=== PATIENT | male | born 1960 | race Caucasian/White ===

== ENCOUNTER 2018-11-23 14:10 | Emergency (ER) | payer OTHER ==
--- NOTE | 2018-11-23 15:33 | ED Physician Documentation ---
PD HPI HEENT - Stated complaint Stated Complaint: L SIDE EAR MUFFLED-OFF BALANCE - Chief complaint Chief Complaint: Heent - History obtained from History obtained from: Patient - History of Present Illness Timing - onset: How many days ago (has had muffled hearing left ear for few days. Trying to cleanse with water and clear with qtip. Seems to worsen.) Timing - duration: Days Timing - details: Gradual onset, Still present Location: Left ear Associated symptoms: No: Fever, Congestion Similar symptoms before: Diagnosis (cerumen impaction in the past.) Review of Systems Constitutional: denies: Fever, Chills Ears: reports: Loss of hearing. denies: Ear pain, Drainage/discharge, Tinnitus/ringing Throat: denies: Sore throat Respiratory: denies: Cough PD PAST MEDICAL HISTORY - Past Medical History Past Medical History: Yes Other Past Medical History: bladder ca - Past Surgical History Past Surgical History: No - Present Medications Home Medications: Ambulatory Orders Medication Instructions Recorded Confirmed Neomycin/Polymyx/Hc Otic Drops 4 drops OT TID #1 bottle 11/23/18 [Cortisporin Ear Susp] - Social History Does the pt smoke?: No Smoking Status: Never smoker Does the pt drink ETOH?: No Does the pt have substance abuse?: No - Immunizations Immunizations are current?: No - POLST Patient has POLST: No PD ED PE NORMAL - Vitals Vital signs reviewed: Yes - General General: Alert and oriented X 3, No acute distress, Well developed/nourished - HEENT HEENT: Pharynx benign. No: Ears normal (right is good. Left with cerumen impaction and can't see the drum. lateral canal appears okay. ) - Neck Neck: Supple, no meningeal sign, No adenopathy Results - Vitals Vitals: Vital Signs - 24 hr 11/23/18 11/23/18 14:42 16:47 Temperature 36.9 C 36.5 C Heart Rate 73 69 Respiratory 18 16 Rate Blood Pressure 118/73 115/89 H O2 Saturation 99 98 Oxygen O2 Source Room air PD MEDICAL DECISION MAKING - ED course Complexity details: considered differential (left cerumen impaction and after removal there is redness and inflammation of medial ear canal. TM appears okay. ), d/w patient Departure - Departure Disposition: 01 Home, Self Care Clinical Impression: Otitis externa Qualifiers: Otitis externa type: other infective Chronicity: acute Laterality: left Qualified Code(s): H60.392 - Other infective otitis externa, left ear Impacted cerumen Qualifiers: Laterality: left Qualified Code(s): H61.22 - Impacted cerumen, left ear Condition: Stable Record reviewed to determine appropriate education?: Yes Instructions: ED Otitis Externa Follow-Up: Jairo Urbano MD [Primary Care Provider] - Prescriptions: Neomycin/Polymyx/Hc Otic Drops [Cortisporin Ear Susp] 4 drops OT TID #1 bottle Comments: The eardrum appears normal. There is some redness and inflammation of the ear canal behind where the ear wax was. Use antibiotic eardrops 3-4 times a day for the next several days for that. Discharge Date/Time: 11/23/18 16:46
[2018-11-23 16:49] VITALS: BP 115/89
== END 2018-11-23 16:46 | disposition home or self-care (01) ==
LOC: ED 14:10
DX: H60.392 Other infective otitis externa, left ear (principal); H61.22 Impacted cerumen, left ear; Z85.51 Personal history of malignant neoplasm of bladder
CPT/HCPCS: 99283

== ENCOUNTER 2019-03-21 15:59 | Outpatient (CLI) | payer OTHER ==
--- NOTE | 2019-03-21 17:05 | XRAY Report ---
Reason: LOW BACK PAIN,CHRONIC HIP PAIN BILAT Procedure Date: 03/21/2019 Accession Number: [id number] / [id number] Procedure: XR - Lumbar Spine 2 View CPT Code: FULL RESULT: EXAM: LUMBOSACRAL SPINE RADIOGRAPHY EXAM DATE: 03/21/2019 04:03 PM. CLINICAL HISTORY: LOW BACK Pain, chronic HIP PAIN BILAT. COMPARISONS: None. TECHNIQUE: 3 views. FINDINGS: Alignment: Normal. No spondylolisthesis or scoliosis. Bones: Five [id number] lumbar vertebral bodies are present. No fractures or bone lesions. Disks: Multilevel disk height narrowing, which is moderately severe at L3-L4 and L5-S1. No significant subluxation. Multilevel anterior spondylosis at most levels. Facets: Mild bilateral L4-L5 facet arthropathy. Sacroiliac Joints: Unremarkable. Soft Tissues: Normal. The visualized bowel gas pattern is normal. IMPRESSION: 1. No acute abnormality. Negative for fracture. 2. Multilevel degenerative disk disease most severe at L3-L4 and L5-S1 as described above. No significant subluxation. 3. Lower lumbar facet arthropathy as described above. RADIA
--- NOTE | 2019-03-21 17:09 | XRAY Report ---
Reason: LOW BACK PAIN,CHRONIC HIP PAIN BILAT Procedure Date: 03/21/2019 Accession Number: [id number] / [id number] Procedure: XR - Hips 2V BILAT CPT Code: FULL RESULT: EXAM: BILATERAL HIP RADIOGRAPHY EXAM DATE: 03/21/2019 04:04 PM. CLINICAL HISTORY: LOW BACK PAIN, CHRONIC HIP PAIN BILATERAL. COMPARISON: None. TECHNIQUE: 2 views each. FINDINGS: Bones: No acute findings. Right Hip: Severe right hip joint osteoarthritis. Weightbearing compartment is [id number]. Left Hip: Moderate left hip osteoarthritis. Soft Tissues: Normal. No soft tissue swelling. IMPRESSION: 1. No acute abnormality. 2. Bilateral hip joint osteoarthritis more severe on the right side. RADIA
== END 2019-03-21 16:00 | disposition home or self-care (01) ==
LOC: DI 15:59
PROVIDERS: ATTEND Family Medicine
DX: M51.36 Other intervertebral disc degeneration, lumbar region (principal); M47.816 Spondylosis without myelopathy or radiculopathy, lumbar region; M51.37 Other intervertebral disc degeneration, lumbosacral region; M48.07 Spinal stenosis, lumbosacral region; M16.0 Bilateral primary osteoarthritis of hip
CPT/HCPCS: 72100; 73521

== ENCOUNTER 2019-09-26 13:51 | Emergency (ER) | payer OTHER ==
--- NOTE | 2019-09-26 15:51 | ED Physician Documentation ---
PD HPI HEENT - Stated complaint Stated Complaint: LT EAR PX - Chief complaint Chief Complaint: Heent - History obtained from History obtained from: Patient - History of Present Illness Timing - onset: How many weeks ago (1-2 weeks of lessened hearing left ear, without pain per se.) Timing - duration: Weeks Timing - details: Gradual onset, Waxing and waning Location: Left ear (decreased hearing and today, cannot hear out of left ear at all.) Associated symptoms: No: Fever, Congestion, Facial swelling Similar symptoms before: Diagnosis (ear wax impaction) Review of Systems Constitutional: denies: Fever, Chills, Myalgias Ears: reports: Loss of hearing, Ear pain. denies: Drainage/discharge Nose: denies: Rhinorrhea / runny nose, Congestion Throat: denies: Sore throat Respiratory: denies: Cough PD PAST MEDICAL HISTORY - Past Medical History Cardiovascular: None Respiratory: None Neuro: None Endocrine/Autoimmune: HyPOthyroidism - Past Surgical History Past Surgical History: No - Present Medications Home Medications: Ambulatory Orders Medication Instructions Recorded Confirmed Neomycin/Polymyx/Hc Otic Drops 4 drops OT TID #1 bottle 11/23/18 [Cortisporin Ear Susp] - Allergies Allergies/Adverse Reactions: Allergies Allergy/AdvReac Type Severity Reaction Status Date / Time No Known Drug Allergies Allergy Verified 09/26/19 14:17 - Social History Does the pt smoke?: No Smoking Status: Current every day smoker Does the pt drink ETOH?: No Does the pt have substance abuse?: No - Immunizations Immunizations are current?: No - POLST Patient has POLST: No PD ED PE NORMAL - Vitals Vital signs reviewed: Yes - General General: Alert and oriented X 3 - HEENT HEENT: Pharynx benign. No: Ears normal (right is okay with just little wax in canal. Left ear shows a wall of wax medial aspect of the canal. Tissue otherwise apears normal. ) - Neck Neck: Supple, no meningeal sign, No bony TTP, No adenopathy - Cardiac Cardiac: RRR, No murmur - Respiratory Respiratory: Clear bilaterally - Derm Derm: Normal color, Warm and dry Results - Vitals Vitals: Oxygen O2 Source Room air PD MEDICAL DECISION MAKING - ED course Complexity details: considered differential (impacted wax left canal. Curretted some out and loosened it, then had nursing irrigate the ear. With good amounts of wax flushed out. His hearing is improved and I looked at canal again, and no signs of OE. ), d/w patient Departure - Departure Disposition: 01 Home, Self Care Clinical Impression: Hearing loss Qualifiers: Hearing loss type: unspecified Laterality: left Qualified Code(s): H91.92 - Unspecified hearing loss, left ear Cerumen impaction Qualifiers: Laterality: left Qualified Code(s): H61.22 - Impacted cerumen, left ear Condition: Stable Record reviewed to determine appropriate education?: Yes Instructions: ED Earwax Removal Comments: You can use some earwax removal drops at home or even some peroxide diluted with water 2-3 times a day into the left ear to help soften and flush out the remaining earwax. Return as needed. Discharge Date/Time: 09/26/19 17:37
[2019-09-26 16:55] VITALS: BP 110/76
== END 2019-09-26 17:37 | disposition home or self-care (01) ==
LOC: ED 13:51
DX: H61.22 Impacted cerumen, left ear (principal)
CPT/HCPCS: 69210; 99281; 99282

== ENCOUNTER 2020-09-11 17:34 | Outpatient (CLI) | payer OTHER | END 2020-09-11 17:35 | disposition home or self-care (01) | LOC: COV 17:34 | PROVIDERS: ATTEND Family Medicine | DX: U07.1 COVID-19 (principal) ==

== ENCOUNTER 2023-01-16 07:34 | Outpatient (CLI) | payer OTHER ==
--- NOTE | 2023-01-16 10:01 | MRI Report ---
PROCEDURE: SHOULDER WO - RT INDICATIONS: RIGHT SHOULDER INJURY TECHNIQUE: Noncontrast oblique coronal T2 fast spin echo with fat saturation, oblique sagittal T1 spin echo and T2 fast spin echo with fat saturation, axial T1 spin echo and T2 fast spin echo with fat saturation t hrough the shoulder. COMPARISON: None. FINDINGS: Image quality: Excellent. Rotator cuff: Full thickness tearing of the mid and anterior supraspinatus tendon at the humeral inse rtion site extending the muscular tendinous junction with associated super spinatus atrophy. Low-grad e partial-thickness articular surface tearing of the mid/posterior supraspinatus tendon as well as th e anterior and mid infraspinatus tendon at the humeral site extending the muscular tendinous junction s. Full-thickness tearing of the mid and superior subscapularis tendon at the humeral insertion site extending the muscular tendinous junction. Teres minor is intact. Bones and bursae: No bone marrow contusions or fractures. Moderate glenohumeral and acromioclavicula r joint degeneration. The acromion demonstrates conventional anatomy, without an os acromiale. No p athologic subacromial/subdeltoid bursal fluid is present. Capsule and soft tissues: Diffuse degenerative tearing of the glenoid labrum. Moderate grade partial- thickness tearing of the proximal biceps tendon. The rotator interval appears normal, without fibrosi s. The coracohumeral ligament is normal in thickness. IMPRESSION: 1. Full-thickness tearing of the supraspinatus tendon as described above with associated atrophy. 2. Full-thickness tearing of the subscapularis tendon. 3. Partial-thickness tearing of the infraspinatus and posterior supraspinatus tendons. 4. Acromioclavicular joint osteoarthritis. 5. Glenohumeral joint osteoarthritis with associated degenerative labral tearing. 6. Partial-thickness biceps tendon tearing. Reviewed by: Sid Corral MD on 01/16/2023 10:00 AM PDT Approved by: Sid Corral MD on 01/16/2023 10:00 AM PDT Station ID: [id number]
== END 2023-01-16 07:35 | disposition home or self-care (01) ==
LOC: DI 07:34
PROVIDERS: ATTEND Hospitalist
DX: M75.121 Complete rotator cuff tear or rupture of right shoulder, not specified as traumatic (principal); M19.011 Primary osteoarthritis, right shoulder; S43.491A Other sprain of right shoulder joint, initial encounter; S46.221A Laceration of muscle, fascia and tendon of other parts of biceps, right arm, initial encounter